=== PATIENT | female | born 1950 | race Caucasian/White ===

== ENCOUNTER → 2016-07-28 | Outpatient (CLI) | payer BC ==
[~2016-07-28] MED LIST: PRM625 PO
== END | disposition home or self-care (01) ==
LOC: C.PAPS 11:38
PROVIDERS: ATTEND Obstetrics & Gynecology
DX: Z01.419 Encounter for gynecological examination (general) (routine) without abnormal findings (principal)

== ENCOUNTER → 2017-01-24 | Outpatient (CLI) | payer BC | END | disposition home or self-care (01) | LOC: C.RDSM 13:56 | PROVIDERS: ATTEND Physical Medicine & Rehabilitation Sports Medicine | DX: M23.8X2 Other internal derangements of left knee (principal); M25.561 Pain in right knee; M25.562 Pain in left knee ==

== ENCOUNTER → 2017-04-07 | Outpatient (CLI) | payer BC ==
--- NOTE | 2017-04-08 13:53 | MAMMOGRAPHY REPORT ---
BILATERAL DIGITAL SCREENING MAMMOGRAM TOMOSYNTHESIS WITH CAD: 04/07/2017 CLINICAL HISTORY: Routine screening. Routine screening. TECHNIQUE: Breast tomosynthesis in addition to standard 2D mammography was performed. Current study was also evaluated with a Computer Aided Detection (CAD) system. COMPARISON: Comparison is made to exams dated: 04/01/2014 mammogram, 03/22/2013 mammogram, 06/23/2011 mammogram, 06/18/2011 mammogram, 05/28/2010 mammogram, and 06/05/2002 mammogram - [facility]. BREAST COMPOSITION: The tissue of both breasts is heterogeneously dense, which may obscure small mas ses. FINDINGS: No suspicious masses, calcifications, or areas of architectural distortion are noted in ei ther breast. There has been no significant interval change compared to prior exams. A biopsy marker clip is again noted within the left 12:00 anterior breast. Residual loosely grouped calcifications p osterior to the biopsy marker clip are not significantly changed compared to prior exams. Bilateral superior breast asymmetries are also stable. IMPRESSION: ACR BI-RADS CATEGORY 2: BENIGN There is no mammographic evidence of malignancy. A 1 year screening mammogram is recommended. The pa tient will receive written notification of the results. Approximately 10% of breast cancers are not detected with mammography. A negative mammographic report should not delay biopsy if a clinically suggestive mass is present. Mariah Pandya M.D. ah/:04/07/2017 16:02:38 [employer]ractor [employer]: Augustin VASQUEZ(R)(M), [facility] letter sent: Normal 1/2 BI-RADS Code: ACR BI-RADS Category 2: Benign
== END | disposition home or self-care (01) ==
LOC: C.MAMM 11:25
PROVIDERS: ATTEND Internal Medicine
DX: Z12.31 Encounter for screening mammogram for malignant neoplasm of breast (principal)

== ENCOUNTER → 2017-08-10 | Outpatient (CLI) | payer OTHER ==
--- NOTE | 2017-08-10 11:30 | DIAGNOSTIC IMAGING REPORT ---
L HIP UNILATERAL 2 VIEWS CLINICAL HISTORY: Left leg pain. COMPARISON: Left hip radiographs December 04, 2010. FINDINGS: Alignment of the left hip is anatomic. There is no fracture or suspicious lesion. There is minimal joint space narrowing and osteophytosis of the left hip. There is no evidence for avascular necrosis. 2.3 cm calcified left pelvic abnormality is similar to prior exam and favors a calcified uterine fibroid. IMPRESSION: Mild osteoarthritis of the left hip. Electronically signed by: Stevan Jones M.D. 08/10/2017 11:28 AM Dictated Date/Time: 08/10/2017 11:27 AM
--- NOTE | 2017-08-10 11:31 | DIAGNOSTIC IMAGING REPORT ---
L-SPINE MIN 4 VIEWS ROUTINE CLINICAL HISTORY: Low back pain. Left leg pain. COMPARISON: Lumbar spine radiograph December 04, 2010. FINDINGS: Alignment of the lumbar spine is anatomic. Vertebral body heights are maintained. There is no fracture or suspicious lesion. A calcified abnormality within left hemipelvis is unchanged by radiography. Disc spaces are preserved. There is mild multilevel facet arthrosis. IMPRESSION: 1. No lumbar spine fracture. 2. Preserved disc spaces within the lumbar spine. 3. Mild multilevel facet arthrosis of the lumbar spine. Electronically signed by: Stevan Jones M.D. 08/10/2017 11:30 AM Dictated Date/Time: 08/10/2017 11:28 AM
[2017-08-10 12:33] LABS: BASO % 0.3 %; BASO ABS # 0.02 K/uL (0-0.2); EOS % 2.5 %; EOS ABS # 0.17 K/uL (0-0.5); HEMATOCRIT 36.7 % (37-47); HEMOGLOBIN 12.6 g/dL (12.0-16.0); LYMPH % 38.8 %; LYMPH ABS # 2.69 K/uL (1.2-3.4); MEAN CELL VOLUME 85.2 fL (80-100); MEAN CORPUSCULAR HEMOGLOBIN 29.2 pg (25-34); MEAN CORPUSCULAR HGB CONC 34.3 g/dl (32-36); MEAN PLATELET VOLUME 9.7 fL (7.4-10.4); MONO % 5.1 %; MONO ABS # 0.35 K/uL (0.11-0.59); NEUT % 53.3 %; PLATELET COUNT 230 K/uL (130-400); RED CELL DISTRIBUTION WIDTH CV 13.8 % (11.5-14.5); RED CELL DISTRIBUTION WIDTH SD 42.5 fL (36.4-46.3); WHITE BLOOD COUNT 6.93 K/uL (4.8-10.8)
[2017-08-10 12:49] LABS: HEMOGLOBIN A1C 5.5 % (4.5-5.6)
[2017-08-10 13:06] LABS: ALBUMIN 3.5 gm/dl (3.4-5.0); ALT/SGPT 19 U/L (12-78); BLOOD UREA NITROGEN 13 mg/dl (7-18); CALCIUM 8.6 mg/dl (8.5-10.1); CARBON DIOXIDE 25 mmol/L (21-32); CHOLESTEROL 247 mg/dl (0-200); CREATININE 0.88 mg/dl (0.60-1.20); GLUCOSE 88 mg/dl (70-99); POTASSIUM 3.6 mmol/L (3.5-5.1); SODIUM 137 mmol/L (136-145)
[2017-08-10 13:18] LABS: ALKALINE PHOSPHATASE 56 U/L (45-117); AST/SGOT 18 U/L (15-37); LDL CHOLESTEROL CALCULATED 161 mg/dl; TOTAL PROTEIN 7.3 gm/dl (6.4-8.2); TRANSFERRIN 299 mg/dl (200-360)
[2017-08-12 01:25] LABS: RAPID PLASMA REAGIN NONREACTIVE (NONREACT)
[2017-08-14 02:25] LABS: ALDOLASE** TC 66985R 3 U/L (0.0-8.1); ANA SCREEN TC 249X NEGATIVE (NEGATIVE); ANTI-SS-A <1.0 NEG AI (<1.0 NEG); ANTI-SS-B <1.0 NEG AI (<1.0 NEG); ANTICARDIOLIPID AB IGA <11 APL (< = 11); COMPLEMENT C3 TC 44859W 137 MG/DL (90-180); COMPLEMENT C4 TC 44982E 48 MG/DL (16-47); MICROSOMAL AB <1 IU/ML (<9)
== END | disposition home or self-care (01) ==
LOC: C.RAD1850 10:58
PROVIDERS: ATTEND Psychiatry & Neurology Neurology
DX: Z13.6 Encounter for screening for cardiovascular disorders (principal); M16.12 Unilateral primary osteoarthritis, left hip; M47.26 Other spondylosis with radiculopathy, lumbar region; M79.605 Pain in left leg; R53.81 Other malaise; R53.83 Other fatigue; J45.30 Mild persistent asthma, uncomplicated; R20.0 Anesthesia of skin; R27.8 Other lack of coordination; R53.82 Chronic fatigue, unspecified; M62.81 Muscle weakness (generalized)

== ENCOUNTER → 2017-09-05 | Outpatient (CLI) | payer OTHER ==
--- NOTE | 2017-09-05 16:41 | DIAGNOSTIC IMAGING REPORT ---
VENOUS DOPPLER LWR EXT BILA HISTORY: Pain. Edema. SWELLING ON FEET COMPARISON STUDY: None. FINDINGS: There is normal compressibility, flow, and augmentation within the bilateral lower extremity deep venous systems. IMPRESSION: No DVT within the right or left lower extremity. The above report was generated using voice recognition software. It may contain grammatical, syntax or spelling errors. Electronically signed by: Juan Antonio Crane M.D. 09/05/2017 4:40 PM Dictated Date/Time: 09/05/2017 4:40 PM
== END | disposition home or self-care (01) ==
LOC: C.ULTR 16:01
PROVIDERS: ATTEND Family Medicine
DX: R60.0 Localized edema (principal); I50.32 Chronic diastolic (congestive) heart failure